=== PATIENT | female | born 1950 | race Caucasian/White ===

== ENCOUNTER 2017-06-18 21:52 | Emergency (ER) | payer OTHER ==
[2017-06-18 22:00] VITALS: BMI 28.2
[2017-06-18] MEDS ORDERED: ASPIRIN 81 MG CHEWTAB ONE (22:10)
[2017-06-18] MEDS ORDERED: NITROSTAT SL ONE (22:11)
[2017-06-18] MEDS: NITROSTAT SL PRN ×2 (22:17→22:30)
[2017-06-18] MEDS ORDERED: NITROSTAT SL PRN (22:25)
[2017-06-18] MEDS ORDERED: NS 1000 ML 1,000 ML IV ONE (22:26)
[2017-06-18] MEDS ORDERED: REGLAN INJ 10 MG VIAL IVP STA (22:26)
[2017-06-18] MEDS ORDERED: LOPRESSOR INJ 5 MG AMP IVP ONE ×2 (22:26→23:27)
[2017-06-18] MEDS ORDERED: LOPRESSOR INJ 5 MG AMP ONE ×2 (22:26→23:28)
[2017-06-18] MEDS ORDERED: REGLAN INJ 10 MG VIAL ONE (22:27)
[2017-06-18] MEDS ORDERED: LASIX IVP ONE ×2 (22:28→22:39)
[2017-06-18] MEDS ORDERED: PROTONIX INJ 40 MG VIAL IVP ONE (22:29)
--- NOTE | 2017-06-18 22:33 | DR.GENAD ---
HPI - PCP Primary Care Physician: ERIK - Complaint/Symptoms Chief Complaint Doctors Comments: Patient is complaining of SOB, nausea, pain under xiphoid area for the past three hours. patient state she is presently not hurting but has been having cramping with nausea and vomiting. states she has had irregular heart rhythm for years and she is taking coumadin for that. state she is a patient of Dr. Park and she has two brothers that had to have open heart surgery. She denies cold, cough, fever, chills, dysuria, or any recent trauma. States she cannot take aspirins because they upset her stomach. Chief Complaint:: SHORT OF BREATH NAUSEATED, ACHING IN STOMACH - Nurses notes reviewed Nurses Notes Review: Yes - Source History Provided: Patient - Mode of Arrival Mode of Arrival: Ambulatory - Timing Onset of Chief Complaint: 06/18/17 Came on: Gradually - Duration Duration: Constant How lon Duration: Hours - Location Location: xiphoid chest discomfort - Severity Severity: Moderate - Modifying Factors Worsens:: nothing Improves:: nothing PMH - PMH Past Medical History: Yes Past Medical History: CVA, Hypertension Past Surgical History: Yes Surgical History: Ortho Surgery - Family History History of Family Medical Conditions: Yes Family Medical History: Hypertension - Social History Does patient currently use any type of tobacco product: Yes Have you used tobacco products in the last 12 months: Yes Type of Tobacco Use: Cigarettes Does any household member use tobacco: No Alcohol Use: None Do you use any recreational Drugs:: No Lives With: Family Lives Where: Home - infectious screening In the last 2 months have you had wt loss of >10#?: NO Have you had fever, night sweats or hemotysis?: No Have you traveled outside the country in the last 6 months?: No Isolation: Standard ROS - Review of Systems Constitutional: No Symptoms Reported. negative: See HPI, Chills, Diaphoresis, Fever, Malaise, Weakness, Irritable, Fatigue, Loss of Appetite, Other Eyes: No Symptoms Reported. negative: See HPI, Eye Pain, Blurred Vision, Tearing, Discharge, Photophobia, Diplopia, Other ENTM: No Symptoms Reported. negative: See HPI, Ear Pain, Ear Discharge, Pulling on Ears, Hearing Loss, Nose Pain, Nose Discharge, Epistaxis, Nose Congestion, Mouth Pain, Mouth Swelling, Loose Teeth, Drooling, Throat Pain, Throat Swelling, Ear Foreign Body Respiratoy: No Symptoms Reported, Short of Breath. negative: See HPI, Productive Cough, Non-Productive Cough, Moist Cough, Dry Cough, Hacking Cough, Barking Cough, Brassy Cough, Orthopnea, Stridor, Wheezing, Hemoptysis, Other Cardiovascular: Chest Pain, Palpitations. negative: No Symptoms Reported, See HPI, Edema, Syncope, Cyanosis, Skin Mottling, Other Gastrointestinal/Abdominal: Abdominal Pain, Nausea, Vomiting. negative: No Symptoms Reported, See HPI, Constipation, Diarrhea, Food Intolerance, Other Genitourinary: No Symptoms Reported. negative: See HPI, Discharge, Dysuria, Frequency, Hematuria, Pain, Bleeding, Other Neurological: No Symptoms Reported. negative: See HPI, Anxiety, Depressed, Emotional Problems, Headache, Numbness, Paresthesia, Pre-existing Deficit, Seizure, Tingling, Tremors, Weakness, Dizziness, Problems Walking, Speech Problem, Other Musculoskeletal: No Symptoms Reported. negative: See HPI, Back Pain, Gout, Joint Pain, Joint Swelling, Muscle Pain, Muscle Stiffness, Neck Pain, Right, Left, Neck, Chest wall, Rib(s), Back, Shoulder, Arm, Elbow, Forearm, Wrist, Hand , Pelvis, Hip, Leg, Knee, Ankle, Foot, Other Integumentary: No Symptoms Reported. negative: See HPI, Change in Color, Change in Hair/Nails, Dryness, Lesions, Lumps, Rash, Itching, Wound, Bruises, Juandice, Other Hematologic/Lymphatic: No Symptoms Reported. negative: See HPI, Anemia, Blood Clots, Easy Bleeding, Easy Bruising, Swollen Glands, Lymphadenopathy, Other Endocrine: No Symptoms Reported. negative: See HPI, Excessive Sweating, Flushing, Intolerance to Cold, Intolerance to Heat, Increased Hunger, Increased Thirst, Increased Urine, Unexplained Weight Gain, Unexplained Weight Loss, Failure to Thrive, Decreased Appetite, Other Psychiatric: No Symptoms Reported. negative: See HPI, Anxiety, Depression, Hallucinations, Excessive crying, Suicidal, Other PE - Vital Signs Vitals: Temperature 98.7 F Pulse Rate [Left Radial] 93 Pulse Rate 107 Respiratory Rate 18 Blood Pressure [Left Arm] 128/66 Blood Pressure [Right Arm] 189/120 Blood Pressure 181/99 O2 Sat by Pulse Oximetry 96 - General Limitations: No Limitations General Appearance: Alert, In Distress (moderate) - Head Head Exam: Normal Inspection, Atraumatic, Normocephalic - Eyes Eye exam: Normal Appearance, PERRL, EOMI. negative: Scleral Icterus, Conjunctival Injection, Nystagmus, Miosis, Mydrasis, Periorbital Swelling, Periorbital Tenderness, Other - ENT ENT Exam: Normal Exam, Normal Oropharynx, Normal External Ear Exam, Mucous Membranes Moist, TM's Normal Bilaterally External Ear Exam: Normal External Inspection TM/Canal Exam: Bilateral Normal Nose Exam: Normal Nose Exam Mouth Exam: Normal Inspection Throat Exam: Normal Inspection - Neck Neck Exam: Normal Inspection, Full ROM, Trachea Midline - Chest Chest Inspection: Normal Inspection, Symmetric Chest Wall Rise - Respiratory Respiratory Exam: Normal Lung Sounds Bilat Respiratory Exam: Bilateral Clear to Auscultation - Cardiovascular Cardiovascular Exam: Regular Rate, Normal Rhythm, Irregular Rhythm, Systolic Murmur - Abdominal Exam Abdominal Exam: Normal Inspection, Normal Bowel Sounds, Soft, Tenderness ( epigastric tenderness), Dimnished Bowel Sounds Abdominal Tenderness: Epigastrium, Moderate - Extremities Extremities Exam: Normal Inspection, Full ROM, Normal Capillary Refill, Edema ( trace). negative: Tenderness, Joint Swelling, Calf Tenderness, Other - Back Back Exam: Normal Inspection, Full ROM. negative: Tenderness, (R) CVA Tenderness, (L) CVA Tenderness, Muscle Spasm, Paraspinal Tenderness, Vertebral Tenderness, Rashes, (R) Sciatic Notch Tenderness, (L) Sciatic Notch Tendern, (R ) Straight Leg Raise, (L) Straight Leg Raise, Other - Neurologic Neurological Exam: Alert, Oriented X3, CN II-XII Intact, Reflexes Normal. negative: Normal Gait (gait not tested) - Psychiatric Psychiatric Exam: Normal Affect, Normal Mood - Skin Skin Exam: Warm, Dry, Intact, Normal Color Course - Reevaluation 1st: Improved - Consultation Called: 23:35 Call Returned: 23:35 (Dr. Vila accepted patient in transfer to [facility]) - Education/Counseling Education/Counseling: Patient, Family Educated On: Treatment, Diagnosis, Prognosis, Needs for Follow Up ROR - Labs Reviewed Laboratory Results Reviewed?: Yes (all labs and x-ray results reviewed and discussed with patient) Result Diagrams: 06/18/17 22:14 06/18/17 22:14 Laboratory: WBC 16.5 X10^3/uL (3.6-10.0) H 06/18/17 22:14 RBC 4.21 X10^6/uL (3.5-5.4) 06/18/17 22:14 Hgb 13.5 g/dL (12.0-16.0) 06/18/17 22:14 Hct 40.1 % (36.0-47.0) 06/18/17 22:14 MCV 95.1 fL (80.0-100.0) 06/18/17 22:14 MCH 32.0 pg (27.0-34.0) 06/18/17 22:14 MCHC 33.7 g/dL (33.0-35.0) 06/18/17 22:14 RDW 14.9 % (11.6-16.5) 06/18/17 22:14 Plt Count 189 X10^3/uL (150.0-450.0) 06/18/17 22:14 MPV 9.2 fL (7.4-11.0) 06/18/17 22:14 Neut % 88.5 % (42.0-75.0) H 06/18/17 22:14 Lymph % 7.1 % (21.0-51.0) L 06/18/17 22:14 [place] % 3.9 % (0.0-13.0) 06/18/17 22:14 Eos % 0.1 % (0.9-2.9) L 06/18/17 22:14 Baso % 0.4 % (0.2-1.0) 06/18/17 22:14 Neut # 14.6 x10^3/uL (2.2-4.8) H 06/18/17 22:14 Lymph # 1.2 X10^3/uL (1.3-2.9) L 06/18/17 22:14 [place] # 0.6 x10^3/uL (0.3-0.8) 06/18/17 22:14 Eos # 0.0 x10^3/uL (0.0-0.2) 06/18/17 22:14 Baso # 0.1 X10^3/uL (0.0-0.1) 06/18/17 22:14 Absolute Nucleated RBC 0.0 /100WBC 06/18/17 22:14 INR Target Range - 06/18/17 22:14 INR 1.25 (0.8-1.3) 06/18/17 22:14 PTT 27.1 SECONDS (22.9-36.5) 06/18/17 22:14 PTT Comment - 06/18/17 22:14 D-Dimer 1200 ng/mL (0-400) H* 06/18/17 22:14 Sodium 138 mmol/L (136-145) 06/18/17 22:14 Corrected Sodium 140 mmol/L (136-145) 06/18/17 22:14 Potassium 3.5 mmol/L (3.5-5.1) 06/18/17 22:14 Chloride 103 mmol/L (98-107) 06/18/17 22:14 Carbon Dioxide 20.7 mmol/L (21-32) L 06/18/17 22:14 BUN 21 mg/dL (7-18) H 06/18/17 22:14 Creatinine 1.39 mg/dL (0.55-1.02) H 06/18/17 22:14 Est GFR (MDRD) Af Amer 48 (>60) L 06/18/17 22:14 Est GFR (MDRD) Non-Af 40 (>60) L 06/18/17 22:14 Glucose 172 mg/dL (65-99) H 06/18/17 22:14 Calcium 10.9 mg/dL (8.5-10.1) H 06/18/17 22:14 Corrected Calcium TNP 06/18/17 22:14 Magnesium 2.0 mg/dL (1.7-2.9) 06/18/17 22:14 Total Bilirubin 0.70 mg/dL (0.2-1.0) 06/18/17 22:14 AST 16 Units/L (15-37) 06/18/17 22:14 ALT 21 Units/L (12-78) 06/18/17 22:14 Alkaline Phosphatase 94 Units/L (46-116) 06/18/17 22:14 Creatine Kinase 37 Units/L (26-192) 06/18/17 22:14 CK-MB (CK-2) 2.2 ng/mL (0-4.0) 06/18/17 22:14 CK/CKMB % Calc 6.0 % (<4) 06/18/17 22:14 Troponin I 0.27 ng/mL (0-1.5) 06/18/17 22:14 B-Natriuretic Peptide 437 pg/mL (0-79) H 06/18/17 22:14 Total Protein 7.7 g/dL (6.4-8.2) 06/18/17 22:14 Albumin 4.2 g/dL (3.4-5.0) 06/18/17 22:14 Globulin 3.5 g/dL (2.5-4.5) 06/18/17 22:14 Albumin/Globulin Ratio 1.2 Ratio (1.1-2.1) 06/18/17 22:14 Specimen Type Catherized urine 06/18/17 22:48 Urine Color Yellow (YELLOW) 06/18/17 22:48 Urine Appearance Hazy (CLEAR) 06/18/17 22:48 Urine pH 5.0 (5.0 - 8.0) 06/18/17 22:48 Ur Specific [place] 1.020 (1.000-1.030) 06/18/17 22:48 Urine Protein Trace (NEGATIVE) 06/18/17 22:48 Urine Glucose (UA) Negative (NEGATIVE) 06/18/17 22:48 Urine Ketones Negative (NEGATIVE) 06/18/17 22:48 Urine Occult Blood Negative (NEGATIVE) 06/18/17 22:48 Urine Nitrite Negative (NEGATIVE) 06/18/17 22:48 Urine Bilirubin Negative (NEGATIVE) 06/18/17 22:48 Urine Urobilinogen Normal (NORMAL) 06/18/17 22:48 Ur Leukocyte Esterase Negative (NEGATIVE) 06/18/17 22:48 Urine RBC 0-3 /HPF (NEGATIVE) 06/18/17 22:48 Urine WBC 5-10 /HPF (NEGATIVE) 06/18/17 22:48 Ur Squamous Epith Cells Rare /HPF (NEGATIVE) 06/18/17 22:48 Urine Bacteria 3+ /HPF (NEGATIVE) 06/18/17 22:48 Ur Culture Indicated? Yes/culture set up 06/18/17 22:48 H. pylori IgG Antibody Positive (NEGATIVE) A 06/18/17 22:14 - XRAY XRAY Interpreted by: Self (CXR: Cardiomegaly; increased marking lower lobes suggest fibrosis) - EKG Rate: 101 Rhythm: Afib, PVCs ST: Ant, Ischemia, Infarct (anteroseptal infarct, age indeterminate. prolong QT) - Diagnosis Discharge Problem: chest pain r/o Non-STEMI, Atrial fibrillation with RVR, CAD (coronary artery disease), Essential hypertension, Urinary tract infection, Hyperglycemia, Helicobacter positive gastritis Chronic kidney disease (CKD) Qualifiers: Chronic kidney disease stage: stage 3 (moderate) Qualified Code(s): N18.3 - Chronic kidney disease, stage 3 (moderate) Dyspnea Qualifiers: Dyspnea type: shortness of breath Qualified Code(s): R06.02 - Shortness of breath; R06.00 - Dyspnea, unspecified; R06.01 - Orthopnea - Discharge Plan Disposition: Disch/Tx to Hospital Condition: Stable - Follow ups/Referrals Follow ups/Referrals: Dwaine Park [Primary Care Provider] - 3 days - Instructions
[2017-06-18] MEDS ORDERED: PROTONIX INJ 40 MG VIAL ONE (22:39)
[2017-06-18 22:40] LABS: BASOPHILS # (AUTO) 0.1 X10^3/uL (0.0-0.1); BASOPHILS % (AUTO) 0.4 % (0.2-1.0); EOSINOPHILS % (AUTO) 0.1 % (0.9-2.9); HEMATOCRIT 40.1 % (36.0-47.0); HEMOGLOBIN 13.5 g/dL (12.0-16.0); LYMPHOCYTES # (AUTO) 1.2 X10^3/uL (1.3-2.9); LYMPHOCYTES % (AUTO) 7.1 % (21.0-51.0); MEAN CORPUSCULAR HGB CONC 33.7 g/dL (33.0-35.0); MEAN CORPUSCULAR VOLUME 95.1 fL (80.0-100.0); MEAN PLATELET VOLUME 9.2 fL (7.4-11.0); MONOCYTES # (AUTO) 0.6 x10^3/uL (0.3-0.8); MONOCYTES % (AUTO) 3.9 % (0.0-13.0); NEUTROPHILS # (AUTO) 14.6 x10^3/uL (2.2-4.8); NEUTROPHILS % (AUTO) 88.5 % (42.0-75.0); PLATELET COUNT 189 X10^3/uL (150.0-450.0); RED BLOOD COUNT 4.21 X10^6/uL (3.5-5.4); RED CELL DISTRIBUTION WIDTH 14.9 % (11.6-16.5); WHITE BLOOD COUNT 16.5 X10^3/uL (3.6-10.0)
[2017-06-18] MEDS ORDERED: NS 1000 ML 1,000 ML ONE (22:43)
[2017-06-18 22:57] LABS: BLOOD UREA NITROGEN 21 mg/dL (7-18); CALCIUM 10.9 mg/dL (8.5-10.1); CARBON DIOXIDE 20.7 mmol/L (21-32); CHLORIDE 103 mmol/L (98-107); COR NA(FOR HYPERGLY) 140 mmol/L (136-145); CREATININE 1.39 mg/dL (0.55-1.02); SODIUM 138 mmol/L (136-145); TROPONIN I 0.27 ng/mL (0-1.5); eGFR BLACK RACES 48 (>60); eGFR NON BLACK RACES 40 (>60)
[2017-06-18 22:59] LABS: B-TYPE NATRIURETIC PEPTIDE 437 pg/mL (0-79)
[2017-06-18 23:01] LABS: ALANINE AMINOTRANSFERASE 21 Units/L (12-78); ALBUMIN 4.2 g/dL (3.4-5.0); ALKALINE PHOSPHATASE 94 Units/L (46-116); ASPARTATE AMINO TRANSFERASE 16 Units/L (15-37); CREATINE KINASE 37 Units/L (26-192); CREATINE KINASE MB 2.2 ng/mL (0-4.0); TOTAL PROTEIN 7.7 g/dL (6.4-8.2)
[2017-06-18 23:07] LABS: APPEARANCE,URINE HAZY (CLEAR); COLOR,URINE YELLOW (YELLOW); PROTEIN,URINE TRACE (NEGATIVE)
[2017-06-18 23:08] LABS: BILIRUBIN,URINE NEGATIVE (NEGATIVE); BLOOD/HEMOGLOBIN,URINE NEGATIVE (NEGATIVE); GLUCOSE, URINE NEGATIVE (NEGATIVE); KETONES,URINE NEGATIVE (NEGATIVE); LEUKOCYTE ESTERASE ,URINE NEGATIVE (NEGATIVE); NITRITES,URINE NEGATIVE (NEGATIVE); RBC,URINE 0-3 /HPF (NEGATIVE); SQUAMOUS EPITHELIAL CELL,UR RARE /HPF (NEGATIVE); UROBILINOGEN,URINE NORMAL (NORMAL)
[2017-06-18 23:09] LABS: BACTERIA,URINE 3+ /HPF (NEGATIVE)
[2017-06-18] MEDS ORDERED: NITRO-BID OINT 2% Multi-Dose tube ONE (23:24)
[2017-06-18] MEDS ORDERED: HEPARIN SODIUM INJ 5000 UNITS ONE (23:29)
[2017-06-18] MEDS ORDERED: HEPARIN SODIUM IN D5W 25,000 UNITS/500 ML BAG IV ONE (23:30)
[2017-06-18 23:39] VITALS: BP 181/99
[2017-06-18] MEDS ORDERED: HEPARIN SODIUM IN D5W 25,000 UNITS/500 ML BAG IV PRN (23:40)
[2017-06-18] MEDS ORDERED: HEPARIN SODIUM INJ 5000 UNITS IVP ONE (23:40)
--- NOTE | 2017-06-19 03:44 | RAD ---
Chest, AP portable Indication: Shortness of breath Comparison: 08/23/2016 Findings: There is mild cardiac silhouette enlargement with diffuse interstitial thickening suggestiv e for mild edema. There are small bilateral pleural effusions. Impression: Cardiomegaly with interstitial edema suggestive for CHF. Reported By:
== END 2017-06-18 23:56 | disposition hospice, inpatient (51) ==
LOC: ER 21:52
DX: R07.89 Other chest pain (principal); I48.0 Paroxysmal atrial fibrillation; I25.10 Atherosclerotic heart disease of native coronary artery without angina pectoris; I10 Essential (primary) hypertension; N39.0 Urinary tract infection, site not specified; R73.9 Hyperglycemia, unspecified; B96.81 Helicobacter pylori [H. pylori] as the cause of diseases classified elsewhere; N18.3 Chronic kidney disease, stage 3 (moderate); R06.02 Shortness of breath; R06.00 Dyspnea, unspecified; I51.7 Cardiomegaly; B96.29 Other Escherichia coli [E. coli] as the cause of diseases classified elsewhere
CPT/HCPCS: 36415; 51702; 71010; 80053; 81001; 82550; 82553; 83735; 83880; 84484; 85025; 85378; 85610; 85730; 86677; 87086; 87088; 87186; 93005; 93010; 96365; 96374; 96375; 99285; A4222; C9113; J1644; J1940; J2765; J3490